=== PATIENT | male | born 1965 | race Caucasian/White ===

== ENCOUNTER → 2021-06-12 | Outpatient (CLI) | payer OTHER ==
[~2021-06-12] MED LIST: GADOTERATE 5 MMOL/10ML VIAL. INT ART ONE; IOHEXOL 300 MG/ML 50 ML VIAL. INT ART ONE; LIDOCAINE 1% Multi-Dose 20 ML VIAL. ID ONE
--- NOTE | 2021-06-12 16:37 | KCIC ---
EXAM: Left shoulder injection WITH Fluoroscopic guidance DATE: 06/12/2021 2:30 PM CLINICAL HISTORY: Reason: LT SHOULDER PAIN S/P FALL ON ICE 04/02/21 [place] / Spl. Instructio ns: .1ML CLARISCAN, 10ML OMNI 300, 10ML SALINE, 10ML LIDOCAINE / History: 1 IMG, FT 00:07 COMPARISON: None pertinent TECHNIQUE: The patient was informed of the indications and alternatives for this procedure as well as risks and benefits. No immediate contraindication identified. The patient provided informed, written consent. Laterality was confirmed by the entire team following a time out. Following initial Left shoulder localization, a suitable area was sterilely prepped and draped. Local anesthesia was administered with 1% xylocaine. With intermittent fluoroscopic observation, a 22-gaug e spinal needle was advanced into the Left shoulder sheath/capsule with confirmation of intra-synovia l position with infusion of less than 1 cc iodinated contrast. Subsequent infusion 12 cc solution con taining 10 cc saline, 5 cc lidocaine 1%, 5 cc Isovue and 0.1 cc gadolinium. Hemostasis with local pre ssure. Local clinical exam negative for immediate complication. Patient informed re local potential signs or symptoms that may indicate need to return to ER/Ordering physician for further evaluation. Patient informed re precautionary measures after intra-synovial in jection of anesthetic. Patient expressed understanding. Performing Physicians: Dr. Julianna Fonseca Blood Loss: 0 cc Total Fluoroscopy time: 7 seconds Total spot images taken: 1 IMPRESSION: Successful intra-synovial injection Left shoulder gadolinium contrast pre-MRI per clinical request. Electronically signed by: Brijesh Fonseca MD (06/12/2021 4:34 PM) [id number]
--- NOTE | 2021-06-13 11:07 | KCIC ---
EXAM: MRI arthrogram left shoulder DATE: 06/12/2021 3:45 PM COMPARISON: None INDICATION: Reason: LEFT SHOULDER PAIN / Spl. Instructions: / History: LT SHOULDER PAIN S/P FALL ON ICE 04/02/21 [place] TECHNIQUE: Multiplanar, multisequence MRI arthrogram of the left shoulder was performed following the administration of intra-articular gadolinium contrast. FINDINGS: Iatrogenic distention of the left glenohumeral joint with gadolinium contrast. Subacromial-subdeltoid bursal fluid with gadolinium characteristics. Full-thickness, partial width tear of the anteriormost fibers of the supraspinatus tendon measuring 1 .3 cm in AP dimension with approximately 1.5 cm retraction from the greater tuberosity. Moderate incr eased signal within the supraspinatus and infraspinatus tendon, tendinosis. Rotator cuff muscle signa l and bulk is normal without fatty atrophy. AC joint DJD with small osteophytes. Type II acromion. No os acromiale. Mildly increased signal within the intra-articular long head biceps tendon, tendinosis. Extra articul ar long head biceps tendon is intact. No discrete labral tear is seen. Articular cartilage is grossly preserved. No acute fracture or osteonecrosis. IMPRESSION: 1. Full-thickness, partial width tear of the anteriormost supraspinatus tendon measuring 1.3 cm in A P dimension. 2. Background of supraspinatus and infraspinatus tendinosis. 3. Mild intra-articular long head biceps tendinosis. Electronically signed by: Brijesh Fonseca MD (06/13/2021 11:05 AM) [id number]
== END | disposition home or self-care (01) ==
LOC: KCIC 14:04
PROVIDERS: ATTEND Family Medicine
DX: M25.512 Pain in left shoulder (principal); Z79.899 Other long term (current) drug therapy
CPT/HCPCS: 23350; 73222; 77002; A9575; J3490; Q9967